=== PATIENT | female | born 1995 | race Caucasian/White ===

== ENCOUNTER 2021-03-12 07:07 | Emergency (ER) | payer OTHER ==
[2021-03-12 07:16] VITALS: BP 122/72; PULSE 109; TEMP 99.3; BMI 27.4
== END 2021-03-12 08:47 | disposition home or self-care (01) ==
LOC: JER 07:07
DX: B34.9 Viral infection, unspecified (principal)
CPT/HCPCS: 87804; 99283-25; C9803-CS; U0003; U0005